=== PATIENT | female | born 1995 | race Caucasian/White ===

== ENCOUNTER 2018-11-28 17:54 | Emergency (ER) | payer OTHER ==
--- NOTE | 2018-11-28 20:18 | Emergency Department Report ---
ED Psych HPI - General Stated Complaint: SUCIDAL/PANIC ATTACK Time Seen by Provider: 11/28/18 20:18 Source: family Mode of arrival: Ambulatory Limitations: No Limitations - History of Present Illness Initial Comments: 23-year-old female with a past medical history presents to the hospital with complaints of anxiety and suicidal ideation. Patient has never seen a psychiatrist as does not have a psychiatric diagnosis. She states she's been having issues with her . Today her anxiety became overwhelming at work and she was trembling all over and therefore decided to come to the hospital. Patient also has a self-inflicted superficial abrasion to her right inner thigh. She used scissors with this wound. Her plan to kill herself is to cut her wrists. She denies previous attempts in the past but has been suicidal past but felt better after calling suicide prevention Hotline. She complains headache after striking her head is Not her head on the wall intentionally last night. Patient denies auditory or visual hallucinations. - Related Data Home Medications Medication Instructions Recorded Confirmed Last Taken No Known Home Medications [No 11/28/18 11/28/18 Unknown Reported Home Medications] Allergies Allergy/AdvReac Type Severity Reaction Status Date / Time No Known Allergies Allergy Unverified 11/28/18 20:29 ED Review of Systems ROS: Stated complaint: SUCIDAL/PANIC ATTACK Other details as noted in HPI Comment: All other systems reviewed and negative ED Past Medical Hx - Medications Home Medications: Home Medications Medication Instructions Recorded Confirmed Last Taken Type No Known Home Medications [No 11/28/18 11/28/18 Unknown History Reported Home Medications] ED Physical Exam - Other Other exam information: General: No limitations, patient is alert in no acute distress Head exam: Atraumatic, normocephalic Eyes exam: Normal appearance, pupils equal reactive to light, extraocular movements intact ENT: Moist mucous membrane Neck exam: Normal inspection, full range of motion, no meningismus nontender Respiratory exam: Clear to auscultation bilateral, no wheezes, rales, crackles Cardiovascular: Normal rate and rhythm, normal heart sounds Abdomen: Soft, nondistended, and nontender, with normal bowel sounds, no rebound, or guarding Extremity: Full range of motion normal inspection no deformity Back: Normal Inspection, full range of motion, no tenderness Neurologic: Alert, oriented x3, cranial nerves intact, no motor or sensory deficit Psychiatric: normal affect, normal mood Skin: Superficial skin abrasion to right inner thigh from self-inflicted wound ED Course Vital Signs 11/28/18 20:22 Temperature 98 F Pulse Rate 85 Respiratory 16 Rate Blood Pressure 99/68 O2 Sat by Pulse 100 Oximetry ED Medical Decision Making - Lab Data Result diagrams: 11/28/18 20:40 11/28/18 20:40 Lab Results 11/28/18 11/28/18 11/28/18 Range/Units 20:29 20:29 20:40 WBC (4.5-11.0) K/mm3 RBC (3.65-5.03) M/mm3 Hgb (10.1-14.3) gm/dl Hct (30.3-42.9) % MCV (79-97) fl MCH (28-32) pg MCHC (30-34) % RDW (13.2-15.2) % Plt Count (140-440) K/mm3 Lymph % (Auto) (13.4-35.0) % [place] % (Auto) (0.0-7.3) % Eos % (Auto) (0.0-4.3) % Baso % (Auto) (0.0-1.8) % Lymph # (1.2-5.4) K/mm3 [place] # (0.0-0.8) K/mm3 Eos # (0.0-0.4) K/mm3 Baso # (0.0-0.1) K/mm3 Seg Neutrophils % (40.0-70.0) % Seg Neutrophils # (1.8-7.7) K/mm3 Sodium (137-145) mmol/L Potassium (3.6-5.0) mmol/L Chloride (98-107) mmol/L Carbon Dioxide (22-30) mmol/L Anion Gap mmol/L BUN (7-17) mg/dL Creatinine (0.7-1.2) mg/dL Estimated GFR ml/min BUN/Creatinine Ratio % Glucose (65-100) mg/dL Calcium (8.4-10.2) mg/dL Urine Color Straw (Yellow) Urine Turbidity Clear (Clear) Urine pH 6.0 (5.0-7.0) Ur Specific [place] 1.008 (1.003-1.030) Urine Protein <15 mg/dl (Negative) mg/dL Urine Glucose (UA) Neg (Negative) mg/dL Urine Ketones Neg (Negative) mg/dL Urine Blood Neg (Negative) Urine Nitrite Neg (Negative) Urine Bilirubin Neg (Negative) Urine Urobilinogen < 2.0 (<2.0) mg/dL Ur Leukocyte Esterase Lg (Negative) Urine WBC (Auto) 1.0 (0.0-6.0) /HPF Urine RBC (Auto) 1.0 (0.0-6.0) /HPF U Epithel Cells (Auto) 1.0 (0-13.0) /HPF Urine Bacteria (Auto) 1+ (Negative) /HPF Urine Mucus Few /HPF Urine HCG, Qual Negative (Negative) Salicylates < 0.3 L (2.8-20.0) mg/dL Urine Opiates Screen Presumptive negative Urine Methadone Screen Presumptive negative Acetaminophen (10.0-30.0) ug/mL Ur Barbiturates Screen Presumptive negative Ur Phencyclidine Scrn Presumptive negative Ur Amphetamines Screen Presumptive negative U Benzodiazepines Scrn Presumptive negative Urine Cocaine Screen Presumptive negative U Marijuana (THC) Screen Presumptive negative Drugs of Abuse Note Disclamer Plasma/Serum Alcohol (0-0.07) % 11/28/18 11/28/18 11/28/18 Range/Units 20:40 20:40 20:40 WBC (4.5-11.0) K/mm3 RBC (3.65-5.03) M/mm3 Hgb (10.1-14.3) gm/dl Hct (30.3-42.9) % MCV (79-97) fl MCH (28-32) pg MCHC (30-34) % RDW (13.2-15.2) % Plt Count (140-440) K/mm3 Lymph % (Auto) (13.4-35.0) % [place] % (Auto) (0.0-7.3) % Eos % (Auto) (0.0-4.3) % Baso % (Auto) (0.0-1.8) % Lymph # (1.2-5.4) K/mm3 [place] # (0.0-0.8) K/mm3 Eos # (0.0-0.4) K/mm3 Baso # (0.0-0.1) K/mm3 Seg Neutrophils % (40.0-70.0) % Seg Neutrophils # (1.8-7.7) K/mm3 Sodium 137 (137-145) mmol/L Potassium 3.8 (3.6-5.0) mmol/L Chloride 99.9 (98-107) mmol/L Carbon Dioxide 27 (22-30) mmol/L Anion Gap 14 mmol/L BUN 11 (7-17) mg/dL Creatinine 0.8 (0.7-1.2) mg/dL Estimated GFR > 60 ml/min BUN/Creatinine Ratio 14 % Glucose 138 H (65-100) mg/dL Calcium 8.9 (8.4-10.2) mg/dL Urine Color (Yellow) Urine Turbidity (Clear) Urine pH (5.0-7.0) Ur Specific [place] (1.003-1.030) Urine Protein (Negative) mg/dL Urine Glucose (UA) (Negative) mg/dL Urine Ketones (Negative) mg/dL Urine Blood (Negative) Urine Nitrite (Negative) Urine Bilirubin (Negative) Urine Urobilinogen (<2.0) mg/dL Ur Leukocyte Esterase (Negative) Urine WBC (Auto) (0.0-6.0) /HPF Urine RBC (Auto) (0.0-6.0) /HPF U Epithel Cells (Auto) (0-13.0) /HPF Urine Bacteria (Auto) (Negative) /HPF Urine Mucus /HPF Urine HCG, Qual (Negative) Salicylates (2.8-20.0) mg/dL Urine Opiates Screen Urine Methadone Screen Acetaminophen < 5.0 L (10.0-30.0) ug/mL Ur Barbiturates Screen Ur Phencyclidine Scrn Ur Amphetamines Screen U Benzodiazepines Scrn Urine Cocaine Screen U Marijuana (THC) Screen Drugs of Abuse Note Plasma/Serum Alcohol < 0.01 (0-0.07) % 11/28/18 Range/Units 20:40 WBC 7.9 (4.5-11.0) K/mm3 RBC 4.74 (3.65-5.03) M/mm3 Hgb 13.4 (10.1-14.3) gm/dl Hct 39.1 (30.3-42.9) % MCV 83 (79-97) fl MCH 28 (28-32) pg MCHC 34 (30-34) % RDW 13.5 (13.2-15.2) % Plt Count 213 (140-440) K/mm3 Lymph % (Auto) 31.3 (13.4-35.0) % [place] % (Auto) 4.3 (0.0-7.3) % Eos % (Auto) 2.0 (0.0-4.3) % Baso % (Auto) 0.8 (0.0-1.8) % Lymph # 2.5 (1.2-5.4) K/mm3 [place] # 0.3 (0.0-0.8) K/mm3 Eos # 0.2 (0.0-0.4) K/mm3 Baso # 0.1 (0.0-0.1) K/mm3 Seg Neutrophils % 61.6 (40.0-70.0) % Seg Neutrophils # 4.9 (1.8-7.7) K/mm3 Sodium (137-145) mmol/L Potassium (3.6-5.0) mmol/L Chloride (98-107) mmol/L Carbon Dioxide (22-30) mmol/L Anion Gap mmol/L BUN (7-17) mg/dL Creatinine (0.7-1.2) mg/dL Estimated GFR ml/min BUN/Creatinine Ratio % Glucose (65-100) mg/dL Calcium (8.4-10.2) mg/dL Urine Color (Yellow) Urine Turbidity (Clear) Urine pH (5.0-7.0) Ur Specific [place] (1.003-1.030) Urine Protein (Negative) mg/dL Urine Glucose (UA) (Negative) mg/dL Urine Ketones (Negative) mg/dL Urine Blood (Negative) Urine Nitrite (Negative) Urine Bilirubin (Negative) Urine Urobilinogen (<2.0) mg/dL Ur Leukocyte Esterase (Negative) Urine WBC (Auto) (0.0-6.0) /HPF Urine RBC (Auto) (0.0-6.0) /HPF U Epithel Cells (Auto) (0-13.0) /HPF Urine Bacteria (Auto) (Negative) /HPF Urine Mucus /HPF Urine HCG, Qual (Negative) Salicylates (2.8-20.0) mg/dL Urine Opiates Screen Urine Methadone Screen Acetaminophen (10.0-30.0) ug/mL Ur Barbiturates Screen Ur Phencyclidine Scrn Ur Amphetamines Screen U Benzodiazepines Scrn Urine Cocaine Screen U Marijuana (THC) Screen Drugs of Abuse Note Plasma/Serum Alcohol (0-0.07) % - Radiology Data Radiology results: report reviewed PROCEDURE: CT HEAD/BRAIN WO CON HISTORY: Head injury/Headache FINDINGS: Unenhanced CT of the brain was performed and demonstrates no acute intracranial hemorrhage, extra-axial fluid collection, midline shift or mass effect. The ventricles and basal cisterns are not effaced. There is a low-density left basal ganglia focus image 21, 0.5 cm a low-density right basal ganglia focus image 20, 0.3 cm, both likely neuroepithelial cysts. The mastoid air cells and middle ears appear clear. There is no evidence of acute sinusitis. The bony calvarium appears intact. IMPRESSION: No acute intracranial hemorrhage - Medical Decision Making Patient presents to the hospital with his anxiety and suicidal ideation with self harming behavior. 1013 and transfer form signed. Patient medically cleared for inpatient psychiatric admission. - Differential Diagnosis suicidal, depression, bipolar, schizophrenia, anxiety Critical Care Time: No Critical care attestation.: If time is entered above; I have spent that time in minutes in the direct care of this critically ill patient, excluding procedure time. ED Disposition Clinical Impression: Suicidal ideation, Anxiety, Self-harming behavior, Medical clearance for psychiatric admission Disposition: [id number]/TX-65 PSY HOSP/PSY UNIT Is pt being admited?: No Condition: Stable Time of Disposition: 01:39 (awaiting acceptance)
[2018-11-28 21:01] LABS: Basophils # (Auto) 0.1 K/mm3 (0.0-0.1); Basophils % (Auto) 0.8 % (0.0-1.8); Eosinophils # (Auto) 0.2 K/mm3 (0.0-0.4); Hematocrit 39.1 % (30.3-42.9); Hemoglobin 13.4 gm/dl (10.1-14.3); Lymphocytes # (Auto) 2.5 K/mm3 (1.2-5.4); Lymphocytes % (Auto) 31.3 % (13.4-35.0); Mean Corpuscular HGB Conc 34 % (30-34); Mean Corpuscular Volume 83 fl (79-97); Monocytes # (Auto) 0.3 K/mm3 (0.0-0.8); Monocytes % (Auto) 4.3 % (0.0-7.3); Platelet Count 213 K/mm3 (140-440); Red Blood Count 4.74 M/mm3 (3.65-5.03); Red Cell Distribution Width 13.5 % (13.2-15.2)
[2018-11-28 21:14] LABS: BUN/Creatinine Ratio 14; Blood Urea Nitrogen 11 mg/dL (7-17); Calcium 8.9 mg/dL (8.4-10.2); Hemolysis Index 6
[2018-11-28 21:22] LABS: Bacteria,Urine 1+ /HPF (Negative); Bilirubin,Urine NEG (Negative); Blood,Urine NEG (Negative); Color,Urine Straw (Yellow); Mucus,Urine FEW /HPF; Protein,Urine <15 mg/dL mg/dL (Negative); Urobilinogen,Urine < 2.0 mg/dL (<2.0)
[2018-11-28 21:35] LABS: HCG Qualitative,Urine Negative (Negative)
[2018-11-28 21:36] LABS: Amphetamine Screen,Urine PRESUMPTIVE NEGATIVE; Benzodiazepines Screen,Urine PRESUMPTIVE NEGATIVE; Cannabinoid Screen,Urine PRESUMPTIVE NEGATIVE; Cocaine Screen,Urine PRESUMPTIVE NEGATIVE; Methadone Screen,Urine PRESUMPTIVE NEGATIVE; Opiate Screen,Urine PRESUMPTIVE NEGATIVE
--- NOTE | 2018-11-28 22:25 | Cat Scan Report ---
PROCEDURE: CT HEAD/BRAIN WO CON HISTORY: Head injury/Headache FINDINGS: Unenhanced CT of the brain was performed and demonstrates no acute intracranial hemorrhage, extra-axial fluid collection, midline shift or mass effect. The ventricles and basal cisterns are no t effaced. There is a low-density left basal ganglia focus image 21, 0.5 cm a low-density right basal ganglia fo cus image 20, 0.3 cm, both likely neuroepithelial cysts. The mastoid air cells and middle ears appear clear. There is no evidence of acute sinusitis. The bony calvarium appears intact. IMPRESSION: No acute intracranial hemorrhage This document is electronically signed by Vish Melendrez MD., Nov 28 2018 10:23:19 PM ET
[2018-11-28] MEDS ORDERED: TRIPLE ANTIBIOTIC TP ONE (23:22)
[2018-11-28] MEDS ORDERED: ANTIBIOTIC OINT TP SCH (23:45)
--- NOTE | 2018-11-29 13:28 | Consultation ---
History of Present Illness - Reason for Consult Consult date: 11/29/18 Reason for consult: Mental Health Evaluation Requesting physician: JACKSON HOLLIS - Chief Complaint Chief complaint: "I was stressed" - History of Present Psychiatric Illness 23 y.o. female who presented to the ER for SI's. Today the patient is calm and cooperative during the assessment. She stated being "stressed" for sometime bec ause of several reasons (financial issues, relationship problems, and issues at her job per the patient). She stated that all her stressors "overwhelmed" her yesterday. She stated that she needed help mentally, so she came to the ER. She acknowledged being suicidal yesterday when asked. She stated she cut her inner right thighs "just because." She stated that she spoken with her about her feelings since being in the ER. She stated that she has a road advisor she can speak with when times get "hectic" She is adamant that she isn't a threat to herself. She denies SI/HI's and AVH's. She denies erratic sleep and a poor appetite. She denies recreational drug use and alcohol consumption (etoh). Medications and Allergies Allergies Allergy/AdvReac Type Severity Reaction Status Date / Time No Known Allergies Allergy Unverified 11/28/18 20:29 Home Medications Medication Instructions Recorded Confirmed Last Taken Type No Known Home Medications [No 11/28/18 11/28/18 Unknown History Reported Home Medications] Past psychiatric history - Past Medical History Past Medical History: No medical history Past Surgical History: No surgical history - past Psychiatric treatment and history psychiatric treatment history: Denies a psy hx and fam psy hx. - Social History Social history: lives with family Mental Status Exam - Vital signs Last Vital Signs Temp 98.4 F 11/29/18 07:41 Pulse 77 11/29/18 07:41 Resp 18 11/29/18 07:41 BP 107/65 11/29/18 07:41 Pulse Ox 100 11/29/18 07:41 - Exam Narrative exam: MSE: Appearance: calm, cooperative Behavior: poor eye contact Speech: regular rate and low tone Mood: "okay" Affect: congruent to mood Thought Process: circumstantial Thought Content: denies SI/HI's and AVH's Motor Activity: ambulatory Cognition: A/O x3 Insight: fair Judgment: variable Results Result Diagrams: 11/28/18 20:40 11/28/18 20:40 Abnormal lab results 11/28/18 11/28/18 11/28/18 Range/Units 20:40 20:40 20:40 Glucose 138 H (65-100) mg/dL Salicylates < 0.3 L (2.8-20.0) mg/dL Acetaminophen < 5.0 L (10.0-30.0) ug/mL All other labs normal. Assessment and Plan Assessment and plan: Impression: MDD, Single Episode. Superficial laceration on her right thigh. Today the patient calm and cooperative during the assessment. DDx: R/O Personality DO Recommendation/Plan: Continue 1013 and gather collateral information. Discussed risk/benefits of SSRI's, but the patient prefer talk therapy and spiritual advisement at this time. Discussed generalized coping skills with the patient, she verbalized understanding. Dispo: Once collateral information can be gathered, proper dispo will be determined. Will staff with Dr. Aguila Lockwood.
--- NOTE | 2018-11-30 14:38 | Progress Note ---
Subjective - Reason for Consult Reason for consult: mookie consult - Chief Complaint Chief complaint: 23 year old AF. Patient notes today that she is doing better. She denies any SI/HI/AH/VH. She been calm and cooperative on the ER unit per staff. She notes that she's had time and an opportunity to reflect on how her stressors have led to her feeling overwhelmed and subsequently suicidal when she originally came into the hospital. She no longer feels this way. She voices understanding that she needs to spend more time with her and decrease her mental burden from her job. She states that she spoke to her and both agree that they need to cut back on their jobs and spend more time together for emotional support. She states once she leaves she intends to go to her student success advisor whom she considers a therapist. She eat and sleep well last night. No psychosis or [place]. She notes that if she has +SI once again she will turn to her support system or come back to ER. She and I discussed the maladaptive coping of cutting behaviors, which she notes that she will not engage in anymore. Mental Status Exam - Vital signs Last Vital Signs Temp 98.4 F 11/30/18 08:09 Pulse 80 11/30/18 08:09 Resp 18 11/30/18 11:48 BP 113/72 11/30/18 08:09 Pulse Ox 99 11/30/18 08:09 - Exam Orientation: time, place, person Affect: normal Mood: appropriate Thought Process: Intact Perceptions: none Speech: normal rate and pattern Concentration: focused Motor activity: normal Level of consciousness: alert Memory: Intact Interaction: cooperative Mini mental status exam(if necessary): 24-30 Assessment and Plan 23 year old AF. Patient notes today that she is doing better. She denies any SI/HI/AH/VH. She continues to improve on the unit and has voices proper insight into her actions and insight as to what needs to be done moving forward. At this time she isn't in any risk of self harm. She notes that she will follow up with care and go home with her for support. A/P MDD-single severe no psychosis Plan: depression- stable at this time- patient to go home with and follow up with student success advisor tomorrow. Can D/C when med cleared- rescind 1013.
[2018-11-30 14:44] VITALS: BP 125/87
== END 2018-11-30 17:19 | disposition home or self-care (01) ==
LOC: EEVIPCON 17:54 → ED 17:54
DX: F32.9 Major depressive disorder, single episode, unspecified (principal); F41.9 Anxiety disorder, unspecified
CPT/HCPCS: 36415; 70450; 80048; 80307; 81001; 81025; 85025; 99284; G0480; 80320; A6250